=== PATIENT | male | born 1945 | race Native Hawaiian/Other Pacific Islander ===

== ENCOUNTER 2020-10-16 15:06 | Outpatient (CLI) | payer OTHER | END 2020-10-16 21:09 | disposition home or self-care (01) | LOC: CT 15:06 | PROVIDERS: ATTEND Nurse Practitioner Family | DX: R06.02 Shortness of breath (principal) | CPT/HCPCS: 36415; 82565; 84520; Q9963 ==

== ENCOUNTER 2021-02-12 07:53 | Outpatient (CLI) | payer OTHER ==
[2021-02-12 08:45] LABS: PLATELET COUNT 253 K/uL (142-355)
[2021-02-12 08:55] LABS: POTASSIUM 4.7 mmol/L (3.6-5.2)
== END 2021-02-12 19:18 | disposition home or self-care (01) ==
LOC: CT 07:53
PROVIDERS: ATTEND Internal Medicine Medical Oncology
DX: I82.412 Acute embolism and thrombosis of left femoral vein (principal); E55.9 Vitamin D deficiency, unspecified; Z12.5 Encounter for screening for malignant neoplasm of prostate
CPT/HCPCS: 36415; 80053; 84153; 85027; 85379; Q9963

== ENCOUNTER 2021-08-06 09:22 | Outpatient (CLI) | payer OTHER | END 2021-08-06 18:56 | disposition home or self-care (01) | LOC: CT 09:22 | PROVIDERS: ATTEND Internal Medicine Sleep Medicine | DX: I26.99 Other pulmonary embolism without acute cor pulmonale (principal); J43.2 Centrilobular emphysema | CPT/HCPCS: 36415; 82565; 84520; Q9963 ==

== ENCOUNTER 2022-02-24 09:59 | Outpatient (CLI) | payer OTHER | END 2022-02-24 19:49 | disposition home or self-care (01) | LOC: CT 09:59 | PROVIDERS: ATTEND Nurse Practitioner Family | DX: I82.412 Acute embolism and thrombosis of left femoral vein (principal); I26.99 Other pulmonary embolism without acute cor pulmonale; E55.9 Vitamin D deficiency, unspecified; Z12.5 Encounter for screening for malignant neoplasm of prostate | CPT/HCPCS: 36415; 82565; 84520; Q9963 ==

== ENCOUNTER 2023-01-13 07:35 | Outpatient (CLI) | payer OTHER | END 2023-01-13 19:55 | LOC: CT 07:35 | PROVIDERS: ATTEND Nurse Practitioner Family | DX: C34.11 Malignant neoplasm of upper lobe, right bronchus or lung (principal); I82.412 Acute embolism and thrombosis of left femoral vein; E55.9 Vitamin D deficiency, unspecified; Z12.5 Encounter for screening for malignant neoplasm of prostate; I26.99 Other pulmonary embolism without acute cor pulmonale | CPT/HCPCS: 36415; 82565; 84520; Q9963 ==